=== PATIENT | female | born 1995 | race American Indian/Alaskan Native ===

== ENCOUNTER 2017-08-09 19:01 | Emergency (ER) | payer OTHER, MEDICAID ==
[2017-08-09] MEDS ORDERED: XYLOCAINE 1% 20 mL ONE (19:19)
[2017-08-09] MEDS ORDERED: XYLOCAINE 1% 20 mL INFILTRATI ONE (19:23)
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
[2017-08-09] MEDS ORDERED: TRIPLE ANTIBIOTIC TP ONE (21:26)
[2017-08-09 21:53] VITALS: BP 133/97
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
== END 2017-08-09 23:00 | disposition home or self-care (01) ==
LOC: ED 19:01
DX: O26.892 Other specified pregnancy related conditions, second trimester (principal); S01.81XA Laceration without foreign body of other part of head, initial encounter; S39.012A Strain of muscle, fascia and tendon of lower back, initial encounter; Z3A.27 27 weeks gestation of pregnancy; V43.52XA Car driver injured in collision with other type car in traffic accident, initial encounter; Y93.89 Activity, other specified; Y92.89 Other specified places as the place of occurrence of the external cause; Y99.8 Other external cause status
CPT/HCPCS: 70450; 72125; 76805; 82962; 99284

== ENCOUNTER 2017-08-17 08:10 | Emergency (ER) | payer MEDICAID, OTHER ==
[2017-08-17 08:25] VITALS: BP 144/90
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
[2017-08-17] MEDS ORDERED: TRIPLE ANTIBIOTIC TP ONE (08:52)
== END 2017-08-17 08:58 | disposition home or self-care (01) ==
LOC: ED 08:10
DX: S01.81XD Laceration without foreign body of other part of head, subsequent encounter (principal); X58.XXXD Exposure to other specified factors, subsequent encounter
CPT/HCPCS: 99282; A6250